=== PATIENT | male | born 1995 | race Caucasian/White ===

== ENCOUNTER 2018-10-06 19:57 | Inpatient (IN) | payer SELFPAY ==
[2018-10-06] MEDS ORDERED: Morphine 4 MG/ML VIAL ONE (20:43)
[2018-10-06] MEDS ORDERED: Ketorolac Tromethamine 30 MG/ML VIAL ONE (20:43)
--- NOTE | 2018-10-06 21:30 | PDOC.FPRHP ---
- History of Present Illness Chief Complaint: cellulitis/bursitis History of Present Illness: This is a 23 yo M presenting to the ED for cellulitis/bursitis of the right elbow. He is a transfer from [facility]. The patient states his first noticed pain /swelling in his elbow on Thursday. He said it really became large, red and swollen on Thursday morning. He states he has a neighbor who is an EMT who marked the area of erythema and took his VS that were normal. He denies any injury/ trauma to the area. Patient reports that starting early today, his right forearm /hand would have a pins and needles/numbness sensation every once in awhile. He also endorsed feeling his "heart beat in his elbow" and he would have to lift his arm to get relief. In the [facility] ED, they aspirated the bursa and had return of pus material. Patient endorses fever. Denies NVD. Reports his is otherwise healthy. Pain rated as 10/10 at its worst and 5/10 when we arrived in the ED. He reported feeling much better than earlier today already. ED Course: 1L NaCl, 4mg morphine, 30mg ketorolac, 2g cefazolin - Allergies/Adverse Reactions Allergies Allergy/AdvReac Type Severity Reaction Status Date / Time No Known Drug Allergies Allergy Verified 10/07/18 03:54 - History PMHx: torn right ACL/meniscus, L arm fracture PSHx: L arm fracture - fixation, right knee ACL/meniscus repair FHx: pt grew up in the foster system and does not have family information Social: denies etoh/tob/drug use - Review of Systems General: reports: fever/chills, fatigue. denies: weight/appetite/sleep changes , night sweats ENT: denies: nasal congestion, rhinorrhea Respiratory: denies: cough, congestion, shortness of breath Cardiovascular: denies: chest pain, palpitation Gastrointestinal: denies: nausea, vomiting, diarrhea, constipation, abdominal pain Skin: reports: lesions (right elbow redness and swelling). denies: rashes Musculoskeletal: reports: pain, tenderness, stiffness, swelling Neurological: reports: numbness (to right hand) - Vital signs BP: 128/80, Pulse: 93, Resp: 18, Temp: 100.2 (Oral), Pain: 8, O2 sat: 98 on Room Air, Time: 10/06/2018 20:02. Weight 74.8kg - Physical Exam Constitutional: NAD, awake, alert and oriented, well developed HEENT: normocephalic and atraumatic, PERRLA, EOMI, grossly normal vision, grossly normal hearing, MMM Neck: supple Heart: RRR, normal S1/S2, no murmurs/rubs/gallops, pulses present Lungs: CTAB, no respiratory distress, good air movement, no rales/rhonchi, no wheezing, no retractions Abdomen: soft, non-tender, bowel sounds present, no masses/distention, no hernias Musculoskeletal: normal structure, normal tone -Musculoskeletal: ROM limited w/ right upper extremity on extension Neurological: no focal deficit, normal sensation Skin: good turgor, capillary refill <2 seconds, other (erythema and swelling to right elbow, about [id number]) -Skin: 10/10 area of erythema noted on right elbow, warm, non flunctuant, mild TTP, sensation in take in hand Psychiatric: normal mood and affect FMR H&P: Results - Radiology Interpretation Other Status: report reviewed by me (Upper extremity CT: soft tissue inflammation at right olecrannon, fluid collection - bursitis vs abscess) FMR H&P: A/P - Problem List (1) Cellulitis Current Visit: Yes Status: Acute Code(s): L03.90 - CELLULITIS, UNSPECIFIED (2) Bursitis Current Visit: Yes Status: Acute Code(s): M71.9 - BURSOPATHY, UNSPECIFIED - Plan Sepsis 2/2 Cellulitis/bursitis of right elbow - pt w/ erythema and swelling of right elbow - WBC 16.3, N 83%, Febrile, and tachycardic on arrival - Start vanc and ancef - Blood cx pending - s/p fluid bolus, continue mIVF - Continue to monitor erythema borders - Can consider ortho consult is not improvement; can consider US to monitor any develop of abscess if no improvement Elevated ALT - check Hep B, Hep C, and HIV given extensive tattooing Dispo: admit to med inpatient, >2midnights Code: FULL Diet: reg Case discussed with Dr. Pelayo FMR H&P: Upper Level - Pertinent history 23 yo HM no PMH. Presents with 2-3 day history of right elbow pain, tenderness, and redness. States his EMT friend marked his elbow thursday morning. States he had some keflex at home that he was trying to use to treat. When swelling and pain worsened this morning, went to ER for evaluation Aras[facility]: needle aspiration, ortho consult, ancef, labs, morphine, toradol, norco, erythema marked. - Pertinent findings Vitals: WNL GEN: NAD CV: RRR Pulm:CTA-B Skin: erythema overlying right elbow, fluctuant underlying. Labs: WBC 16, ALT 84 - Plan Date/Time: 10/06/182127 I, Dany Sanabria MD, have evaluated this patient and agree with findings/plan as outlined by diversity intern resident. Pertinent changes/additions are listed here. 1. septic bursitis: await culture from araseli, continue vanc and ancef. monitor for worsening erythema, pain medication, consider ortho consult if not improving 2. Elevated ALT: check Hep B, Hep C, and HIV given extensive tattooing Diet: Regular PPx: ambulate frequentl CODE: FULL Dispo: inpatient, medical, >2 midnights. Addendum - Attending - Attending Attestation Date/Time: 10/07/18 9579 I personally evaluated the patient and discussed the management with Dr. Sanabria and Jim. I agree with the History, Examination, Assessment and Plan documented above with any addition or exceptions noted below. Possible septic bursitis. MRSA coverage. Ortho consult. Await micro.
[2018-10-06] MEDS ORDERED: Acetaminophen 325 MG TAB PO PRN (22:54)
[2018-10-06] MEDS ORDERED: Ondansetron ODT 4 MG TAB PO PRN (22:54)
[2018-10-06 23:47] VITALS: BMI 25.0
[2018-10-07] MEDS: Morphine 4 MG/ML VIAL SLOW IVP PRN ×3 (00:40→08:46)
[2018-10-07] MEDS: Lactated Ringer's 1,000 ML IV SCH ×3 (00:41→17:13)
[2018-10-07] MEDS: Ketorolac Tromethamine 30 MG/ML VIAL IVP PRN ×3 (04:32→21:08)
[2018-10-07] MEDS: ceFAZolin 1 GM/D5W 1 GM in Premix Bag 1 BAG IVPB SCH ×3 (04:36→14:37)
[2018-10-07] MEDS: Vancomycin HCl 1.25 GM in Sodium Chloride 0.9% 250 ML 250 ML IVPB SCH ×2 (05:16→17:39)
[2018-10-07 05:32] LABS: Hep B Surf Ag Non-Reactive S/CO (NonReactive); Hep C IgG Ab Non-Reactive (NonReactive); Hep C Index 0.03 S/CO (0-0.79)
[2018-10-07 05:34] LABS: HBSAB Concentration 450.77 mIU/mL; Hep B Surf AB Reactive (NonReactive)
[2018-10-07 05:36] LABS: HIV (1/2) Antibody/Antigen Non-Reactive (NonReactive); HIV 1/2 INDEX 0.21 S/CO (<1.00)
--- NOTE | 2018-10-07 05:58 | PDOC.FM ---
- Subjective Subjective: Pt state he is still having some pain in that arm. He states his arm throbs whenever his arm is below his heart. He states the redness is within the current border line. He had some nausea this morning that was relieved with vomiting. - Objective MAR Reviewed: Yes Vital Signs & Weight: Vital Signs (12 hours) Temp Pulse Resp BP Pulse Ox 10/07/18 05:54 98.4 F 90 18 102/64 97 10/06/18 23:47 98.0 F 98 18 107/70 96 10/06/18 23:20 96 Weight Weight 74.843 kg Phys Exam - Physical Examination Constitutional: NAD HEENT: moist MMs Respiratory: no wheezing, clear to auscultation bilateral Cardiovascular: RRR, no significant murmur Gastrointestinal: soft, non-tender, no distention, positive bowel sounds Musculoskeletal: no edema, pulses present Neurovascularly intact Psychiatric: normal affect, A&O x 3 Skin: normal turgor, cap refill <2 seconds Deviation from normal: Fluctuant area over right posterior elbow. Erythema and ttp Dx/Plan (1) Bursitis Code(s): M71.9 - BURSOPATHY, UNSPECIFIED Status: Acute (2) Cellulitis Code(s): L03.90 - CELLULITIS, UNSPECIFIED Status: Acute - Plan Plan: This is a 23 yo otherwise healthy male Sepsis 2/2 cellulitis/bursitis of right elbow -WBC 16.3, febrile, tachycardic on arrival -Vanc and ancef -pending blood and aspiration cultures -Monitor borders skin borders -Consider dev hook and therapeutic drainage for symptom relief Elevated ALT (85) -Negative for Hep B and C and HIV Addendum - Attending - Attending Attestation Date/Time: 10/07/18 6400 I personally evaluated the patient and discussed the management with Dr. Diaz. I agree with the History, Examination, Assessment and Plan documented above with any addition or exceptions noted below. Patient here with what we suspect is septic olecranon bursitis with overlying cellulitis. He has had some increase in the induration of the area this morning with increased pain. Will add Clinda based on suspicion of possible strep or staph with toxin production. We performed another bedside aspiration of the bursa and returned with 5ml of purulent fluid that will be sent for gram stain and cx. Continue other abx. If not making improvements in the next few hours, will consult Ortho to ensure no surgical intervention is needed. Pain control as needed.
[2018-10-07] MEDS: Ondansetron PF 4 MG/2 ML Vial IVP PRN ×2 (08:49→23:50)
[2018-10-07] MEDS: Acetaminophen 500 MG TAB PO SCH ×3 (08:53→22:45)
[2018-10-07] MEDS ORDERED: Lidocaine 1% (PF) 30 ML VIAL ONE (10:26)
[2018-10-07] MEDS: Clindamycin/D5W 300 MG/50 ML BAG IVPB SCH ×2 (11:59→17:43)
[2018-10-07] MEDS ORDERED: HYDROcodone/Acetaminophen 5/325 mg Tablet PO PRN (14:16)
[2018-10-07] MEDS: Promethazine HCl 25 MG/ML VIAL IM/IV PRN (15:42)
--- NOTE | 2018-10-07 17:24 | OP ---
DATE OF PROCEDURE: 10/07/2018 PREPROCEDURE DIAGNOSIS: Septic bursitis, olecranon bursitis. POSTPROCEDURE DIAGNOSIS: Septic olecranon bursitis. PROCEDURE PERFORMED: Aspiration of right bursa. DESCRIPTION OF PROCEDURE: The patient was consented, instructed of the benefits being obtaining fluid sample for evaluation. Risks being pain, bleeding, injury to surrounding tissues, and reaction to medication, as well as infection. The patient's skin was cleaned with alcohol swabs and injected with 1% lidocaine, 3 mL. Anesthesia was obtained, and the patient was swabbed with Betadine. At that point, 18-gauge needle along with a 30 mL syringe was advanced into the bursa, purulent bloody discharge was aspirated from the bursa. The patient tolerated the procedure well and was cleaned with alcohol swabs following bandage placement over the entry wound. Aspiration contents sent to the lab for Gram stain and culture. Estimated blood loss was less than 5 mL. Job ID: [id number]
--- NOTE | 2018-10-07 21:56 | CON ---
DATE OF CONSULTATION: CHIEF COMPLAINT: Right elbow pain. HISTORY OF PRESENT ILLNESS: Mr. Ruiz is a 23-year-old male who was admitted to the hospital last night. He presented with swelling, erythema, and pain over the olecranon bursa. He has had 3 days of worsening symptoms. He does not know how this began. He did not have any wound or bite to the area that he knows of. He has improved since arrival. He feels that he is approximately 50% better. His motion is better. He has had less pain as well. He is on vancomycin and Ancef. He has had aspiration of the elbow and culture sent. These showed gram-positive cocci on his Gram stain. PAST MEDICAL HISTORY: ACL tear and left forearm fracture. PAST SURGICAL HISTORY: Left forearm fracture surgery and right knee ACL and meniscus repair. FAMILY MEDICAL HISTORY: Negative. SOCIAL HISTORY: The patient denies tobacco, alcohol, or drug use. REVIEW OF SYSTEMS: Positive for mild right elbow pain. Otherwise, negative 10-point review of systems. IMAGES: CT scan of the right elbow demonstrates a fluid collection posterior at the olecranon bursa, is approximately 1 cm. No elbow joint effusion. PHYSICAL EXAMINATION: VITAL SIGNS: Temperature is 98.4, pulse is 89, respiratory rate is 18, oxygen saturation 94%, and blood pressure is 102/64. GENERAL: He is alert and oriented, sitting upright, in no apparent distress. RESPIRATORY: Breathing comfortably. ABDOMEN: Soft, nontender, nondistended. MUSCULOSKELETAL: The patient's right upper extremity has faint erythema. He has gentle range of motion from 120 to 5 degrees. Full pronation, supination. There is swelling of the elbow posteriorly. No obvious fluctuance. He has a small puncture wound posteriorly. IMPRESSION: Right septic olecranon bursitis. PLAN: At this point, the patient is improving and responding well to antibiotics. It appears that he will have a staphylococcal infection on his microbiology. We will continue to follow the cultures. He will continue to elevate and work on gentle range of motion. I would like him to be n.p.o. at midnight tonight in case he worsens or needs irrigation and debridement of the elbow. For now, I do not have surgical plans for him. Job ID: [id number]
[2018-10-07] MEDS ORDERED: hydrOXYzine 25 MG TAB PO SCH (23:45)
[2018-10-07] MEDS ORDERED: Lorazepam 2 MG/ML VIAL SLOW IVP PRN (23:52)
[2018-10-08] MEDS: ceFAZolin 1 GM/D5W 1 GM in Premix Bag 1 BAG IVPB SCH ×4 (00:36→23:21)
[2018-10-08] MEDS: Clindamycin/D5W 300 MG/50 ML BAG IVPB SCH ×4 (01:03→16:55)
[2018-10-08] MEDS: Lactated Ringer's 1,000 ML IV SCH ×3 (02:47→15:23)
[2018-10-08] MEDS: Acetaminophen 500 MG TAB PO SCH ×4 (02:48→20:22)
--- NOTE | 2018-10-08 06:21 | PDOC.FM ---
- Subjective Subjective: Pt had an episode of anxiety overnight that was resolved with a one time dose of ativan. This morning pt reports improved AROM and decreased pain. He denies a nausea, vomiting, fever, or chills. - Objective MAR Reviewed: Yes Vital Signs & Weight: Vital Signs (12 hours) Temp Pulse Resp BP Pulse Ox 10/08/18 05:56 98.7 F 91 20 101/66 96 10/08/18 00:42 98.0 F 101 H 22 H 100/66 96 10/08/18 00:35 102 H 16 113/74 10/07/18 20:00 98.6 F 85 16 116/74 96 Weight Weight 74.843 kg I&O: 10/06/18 10/07/18 10/08/18 06:59 06:59 06:59 Intake Total 400 Balance 400 Phys Exam - Physical Examination Constitutional: NAD HEENT: moist MMs Neck: no JVD, full ROM Respiratory: no wheezing, clear to auscultation bilateral Cardiovascular: RRR, no significant murmur Gastrointestinal: soft, non-tender, no distention, positive bowel sounds Musculoskeletal: no edema, pulses present Neurological: moves all 4 limbs Psychiatric: A&O x 3 Skin: cap refill <2 seconds Deviation from normal: Improving rash, similar enduration, less ttp, neurovascularly intact Dx/Plan (1) Bursitis Code(s): M71.9 - BURSOPATHY, UNSPECIFIED Status: Acute (2) Cellulitis Code(s): L03.90 - CELLULITIS, UNSPECIFIED Status: Acute - Plan Plan: This is a 23 yo otherwise healthy male Sepsis 2/2 cellulitis/bursitis of right elbow -WBC 16.3, febrile, tachycardic on arrival -Vanc and ancef -pending blood and aspiration cultures, gram stain shows cocci in clusters, likely Staph -Monitor borders skin borders -Consider dev hook and therapeutic drainage for symptom relief -Ortho consulted, no plans for surgery a this point Elevated ALT (85) -Negative for Hep B and C and HIV Addendum - Attending - Attending Attestation Date/Time: 10/08/18 5727 I personally evaluated the patient and discussed the management with Dr. Diaz. I agree with the History, Examination, Assessment and Plan documented above with any addition or exceptions noted below. Patient with some improvement in pain and gain of mobility in his arm this morning. Redness has improved somewhat, continues to have significant induration. S/p drainage of bursa yesterday. Ortho has eval'd and no plans for surgical intervention. Continue abx, will d/c Ancef. Cultures pending.
[2018-10-08] MEDS: Vancomycin HCl 1.25 GM in Sodium Chloride 0.9% 250 ML 250 ML IVPB SCH ×2 (06:29→16:55)
[2018-10-08] MEDS: Ketorolac Tromethamine 30 MG/ML VIAL IVP PRN ×2 (08:34→15:32)
[2018-10-08] MEDS: Promethazine HCl 25 MG/ML VIAL IM/IV PRN (08:35)
[2018-10-08] MEDS: Ondansetron PF 4 MG/2 ML Vial IVP PRN (15:32)
[2018-10-08] MEDS ORDERED: Melatonin 3 MG TAB PO PRN (23:41)
[2018-10-09] MEDS: Lactated Ringer's 1,000 ML IV SCH ×2 (00:13→04:14)
[2018-10-09] MEDS: Clindamycin/D5W 300 MG/50 ML BAG IVPB SCH ×3 (00:13→10:56)
[2018-10-09] MEDS: Acetaminophen 500 MG TAB PO SCH ×2 (03:00→09:03)
[2018-10-09] MEDS: Ketorolac Tromethamine 30 MG/ML VIAL IVP PRN ×2 (04:09→10:55)
[2018-10-09] MEDS: Ondansetron PF 4 MG/2 ML Vial IVP PRN ×2 (04:09→10:55)
--- NOTE | 2018-10-09 05:20 | PDOC.FM ---
- Subjective Subjective: Feeling much better this AM. States he is able to move his arm like normal. Reports his pain is well controlled. Eating and drinking well, voiding and stooling well. - Objective Vital Signs & Weight: Vital Signs (12 hours) Temp Pulse Resp BP Pulse Ox 10/08/18 19:26 98.1 F 77 18 119/78 98 Weight Weight 74.843 kg I&O: 10/07/18 10/08/18 10/09/18 06:59 06:59 06:59 Intake Total 400 1640 Balance 400 1640 Phys Exam - Physical Examination Constitutional: NAD HEENT: moist MMs Respiratory: no wheezing, clear to auscultation bilateral Cardiovascular: RRR, no significant murmur Gastrointestinal: soft, non-tender, no distention, positive bowel sounds Musculoskeletal: pulses present Active ROM full in right elbow Neurological: non-focal, moves all 4 limbs Psychiatric: normal affect Skin: normal turgor, cap refill <2 seconds Deviation from normal: Erythema seems to have receded from prev marked margins. -: Induration present. 2+ pitting edema around right elbow. Dx/Plan (1) Transaminitis Code(s): R74.0 - NONSPEC ELEV OF LEVELS OF TRANSAMNS & LACTIC ACID DEHYDRGNSE Status: Acute (2) Bursitis Code(s): M71.9 - BURSOPATHY, UNSPECIFIED Status: Acute (3) Cellulitis Code(s): L03.90 - CELLULITIS, UNSPECIFIED Status: Acute - Plan Plan: This is a 23 yo otherwise healthy male Sepsis 2/2 cellulitis/bursitis of right elbow -WBC 16.3, febrile, tachycardic on arrival -Vanc and clinda, discontinue ancef as gram stain shows staph -pending aspiration cultures, sensitivities -does not appear that blood cultures were drawn -Monitor borders skin borders -Consider dev hook and therapeutic drainage for symptom relief -Ortho consulted, no plans for surgery at this point -Likely discharge once sensitivities result if patient continues to improve. Elevated ALT (85) -Negative for Hep B and C and HIV -follow up outpatient Addendum - Attending - Attending Attestation Date/Time: 10/09/18 2071 I personally evaluated the patient and discussed the management with Dr. Bailon. I agree with the History, Examination, Assessment and Plan documented above with any addition or exceptions noted below. Patient doing well and has full ROM on exam. Redness receding well. Awaiting cx sensitivities and likely d.c. home after that time on PO therapy. Will need to establish with PCP outpatient.
[2018-10-09 05:58] LABS: Vancomycin, Trough 6.9 ug/mL
[2018-10-09] MEDS: Vancomycin HCl 1.25 GM in Sodium Chloride 0.9% 250 ML 250 ML IVPB SCH (06:19)
[2018-10-09 08:13] VITALS: BP 124/86; TEMP 98.2
[2018-10-09] MEDS ORDERED: Vancomycin HCl 1.25 GM in Sodium Chloride 0.9% 250 ML 250 ML IVPB SCH (14:00)
--- NOTE | 2018-10-11 12:34 | DIS ---
DATE OF ADMISSION: 10/06/2018 DATE OF DISCHARGE: 10/09/2018 RESIDENT: Mckenna Bailon MD ADMITTING ATTENDING: Chidi Pelayo MD DISCHARGE ATTENDING: Jeff Alas MD CONSULTS: Orthopedics, Dr. Martinez, 10/07/2018. PROCEDURES: Aspiration of the right bursa, 10/07/2018. PRIMARY DIAGNOSES: Sepsis secondary to cellulitis and bursitis of the right elbow secondary to Staphylococcus aureus. SECONDARY DIAGNOSIS: Transaminitis. DISCHARGE MEDICATIONS: Clindamycin 300 mg p.o. 4 times daily. DISCONTINUED MEDICATIONS: None. HISTORY OF PRESENT ILLNESS/HOSPITAL COURSE: A 23-year-old male presented to ED as a transfer from [facility] for cellulitis and bursitis of the right elbow. The patient stated he first noticed pain and swelling on Thursday. He stated it became very large, red, and swollen on Thursday morning. He stated he had a neighbor who is an EMT and marked the area of erythema and took his vital signs that were normal. He denied any injury or trauma to the area. The patient reports that earlier on the day of admission, his right forearm/hand had pins and needles sensation every once in a while. He also endorsed feeling his heart beat in his elbow. He had to lift his arm to get relief. In the [facility] ED, they aspirated the bursa and had return of pus material. The patient endorsed fever. Denied nausea, vomiting, or diarrhea. He reports he is otherwise healthy. His pain is rated as 10/10 at its worst and 5/10 when he arrived to the ED. He reports feeling much better than earlier today already. In the ED, he received 1 L of normal saline, 4 mg of morphine, 30 mg of ketorolac, and 2 g of cefazolin. The patient was septic with a white count. He was febrile and tachycardic on arrival. He was treated with vancomycin, Ancef, and clindamycin. Gram stain showed Staph aureus. Ortho was consulted as he was having difficulty moving and extending his arm. Ortho evaluated him and had no plans for surgical intervention. Cultures resulted and were sensitive to clindamycin, and he was sent home with p.o. clindamycin and instructed to do Hibiclens washes twice weekly for 2 months. The patient was also found to have an elevated ALT of 85, AST was within normal range at 30, and alkaline phosphatase is normal range at 97. Hepatitis B and hepatitis C as well as HIV screening were negative. Recommend outpatient followup. DISPOSITION: Stable. DISCHARGE INSTRUCTIONS: 1. Location: Home. 2. Diet: Regular. 3. Activity: As tolerated. 4. Followup: Establish care, the patient was given information to follow up with [facility] and physician within [address] Diaz. Job ID: [id number]
== END 2018-10-09 13:52 | disposition home or self-care (01) | DRG 872 ==
LOC: ERS 19:57 → T4-B 20:47
PROVIDERS: ADMIT Emergency Medicine; ATTEND Emergency Medicine
PROC: 0M933ZZ Drainage of Right Elbow Bursa and Ligament, Percutaneous Approach (ICD-10-PCS; principal; 2018-10-07)
DX: A41.9 Sepsis, unspecified organism (principal); L03.113 Cellulitis of right upper limb; M70.21 Olecranon bursitis, right elbow; R74.0 Nonspecific elevation of levels of transaminase and lactic acid dehydrogenase [LDH]; Z98.890 Other specified postprocedural states
CPT/HCPCS: 36415; 80202; 84145; 86706; 86803; 87070; 87077; 87186; 87205; 87340; 87389; 96365; 96375; J0690; J1885; J2001; J2060; J2270; J2405; J2550; J3370; J3490; J7050; Q0162